=== PATIENT | male | born 1995 | race Caucasian/White ===

== ENCOUNTER 2019-08-03 16:06 | Emergency (ER) | payer MEDICAID ==
[~2019-08-03] VITALS: Ht 182.9 cm; Wt 90.7 kg
--- NOTE | 2019-08-03 16:06 | NUR ---
RICARDO VALDIVIA ALS TO ER BED 04. RN AND PHYSICAIN EVALUATING AT BEDSIDE.
[2019-08-03] MEDS ORDERED: BACITRACIN OINT 500 UNITS/GM PKT TP ONE (16:10)
[2019-08-03] MEDS ORDERED: ACETAMINOPHEN EXTRA STRENGTH 500 MG TAB PO ONE (16:10)
[2019-08-03 17:48] VITALS: BP 122/86
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
[2019-08-03 17:53] VITALS: BP 126/82
--- NOTE | 2019-08-03 18:13 | NUR ---
PATIENT [facility] POLICE DEPT. PATIENT EXAMINED BY DR. GRAF. PATIENT MEDICALLY CLEARED AND RELEASED IN CUSTODY IN STABLE CONDITION. ORIGINAL PRE-BOOK FORM GIVEN TO OFFICER YONG.
== END 2019-08-03 18:13 ==
LOC: MED 16:06 → EDSEX 16:06 → MED 18:13
DX: S80.812A Abrasion, left lower leg, initial encounter (principal); H10.213 Acute toxic conjunctivitis, bilateral; Y08.89XA Assault by other specified means, initial encounter; Y93.89 Activity, other specified; Y92.098 Other place in other non-institutional residence as the place of occurrence of the external cause; Y99.8 Other external cause status
CPT/HCPCS: 99283